=== PATIENT | male | born 1955 | race Caucasian/White ===

== ENCOUNTER 2016-11-04 05:07 | Emergency (ER) | payer OTHER ==
[~2016-11-04] VITALS: Ht 185.4 cm; Wt 130.5 kg
[~2016-11-04 05:07] MED LIST: ALLOPURINOL300 M1 PO; ARTIFICIAL TEA1 EACH OP; ASCORBIC ACID500 M3 PO; ASPIR LOW81 MG PO; BENADRYL50 MG PO; CARDIZEM CD120 MG; CLARITIN10 MG PO; DEEP SEA 45 ML45 ML; FERROUS SULFAT325 M3 PO; FIBER-CAPS625 MG PO; FLONASE NASAL S16 GM; GABAPENTIN TAB600 MG PO; GLUCOPHAGE PO; ISOSORBIDE30 MG PO; JARDIANCE10 MG PO; LASIX20 MG PO; LEVAQUIN 5500 MG/TA1 PO; LEVEMIR100 U/M1 SQ; LIPITOR20 MG PO; LISINOPRIL40 MG PO; LOPRESSOR 225 MG/TAB PO; NITROTAB0.4 MG; NORCO 325 MG-51 TAB PO; NOVOLOG FLEX100 U/ML SQ; PANTOPRAZOLE SO40 MG PO; PERCOCET 325 MG1 TA2 PO; PRILOSEC 20MG20 MG; VICTOZA 3-0.6 MG/0.1 SQ; VITAMIN D31000 I1 PO; WELLBUTRIN100 MG; ZOFRAN4 M2 PO
[2016-11-04] MEDS ORDERED: ZOFRAN ODT4 MG PO (08:22)
[2016-11-04 08:36] VITALS: BP 130/78
== END 2016-11-04 08:38 | disposition home or self-care (01) ==
LOC: ED 05:07
DX: R11.2 Nausea with vomiting, unspecified (principal); R19.7 Diarrhea, unspecified; M54.5 Low back pain; R10.816 Epigastric abdominal tenderness; I25.10 Atherosclerotic heart disease of native coronary artery without angina pectoris; I10 Essential (primary) hypertension
CPT/HCPCS: J2270

== ENCOUNTER → 2021-06-08 | Outpatient (CLI) | payer OTHER ==
[~2021-06-08] MED LIST changes: +ZOFRAN ODT4 MG PO
== END ==
LOC: VAS 08:29
DX: Z13.6 Encounter for screening for cardiovascular disorders (principal); M79.662 Pain in left lower leg

== ENCOUNTER 2021-12-25 09:25 | Emergency (ER) | payer OTHER ==
[~2021-12-25] VITALS: Ht 185.4 cm; Wt 122.5 kg
[2021-12-25 11:03] VITALS: BP 166/78
== END 2021-12-25 11:08 | disposition home or self-care (01) ==
LOC: ED 09:25
DX: S93.402A Sprain of unspecified ligament of left ankle, initial encounter (principal); X50.1XXA Overexertion from prolonged static or awkward postures, initial encounter

== ENCOUNTER → 2022-01-04 | Outpatient (CLI) | payer OTHER | LOC: RAD 17:47 | DX: M47.22 Other spondylosis with radiculopathy, cervical region (principal); M79.603 Pain in arm, unspecified; R20.0 Anesthesia of skin; G56.22 Lesion of ulnar nerve, left upper limb; G56.03 Carpal tunnel syndrome, bilateral upper limbs; G44.209 Tension-type headache, unspecified, not intractable ==